=== PATIENT | female | born 1945 | race Caucasian/White ===

== ENCOUNTER 2022-06-03 17:45 | Inpatient (IN) | payer BC ==
[~2022-06-03] VITALS: Ht 152.4 cm; Wt 77.6 kg
--- NOTE | 2022-06-03 18:10 | NUR ---
PT BIBRA FROM HOME C/O R ANTECUBITAL AREA PAIN SWELLING AND REDNESS SINCE YESTERDAY. PT STATES HAD BLOOD TRANSFUSION DONE 3 DAYS AGO. 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 AWAITING MD GARCÍA.
--- NOTE | 2022-06-03 18:51 | NUR ---
DR AGUIRRE AT BEDSIDE FOR EVAL.
[2022-06-03] MEDS ORDERED: HYDROCODONE/APAP 5/325MG TABLET ONE ×2 (18:59→22:05)
[2022-06-03] MEDS ORDERED: IV NS 0.9% 1,000 ML BAG IV ONE (19:00)
[2022-06-03] MEDS ORDERED: LEVOFLOXACIN 750 MG /D5W 150ML 150 ML IV ONE ×2 (19:00→19:18)
[2022-06-03] MEDS ORDERED: VANCOMYCIN 1 GM in IV D5W 250 ML IV ONE (19:00)
[2022-06-03] MEDS ORDERED: HYDROCODONE/APAP 5/325MG TABLET PO ONE ×2 (19:00→22:30)
--- NOTE | 2022-06-03 19:22 | NUR ---
REPORT GIVEN TO SUNSHINE KONG FOR LING.
--- NOTE | 2022-06-03 19:24 | NUR ---
MOVE SHEET SUBMITTED.
--- NOTE | 2022-06-03 19:31 | NUR ---
RICARDO SENT TO LAB
--- NOTE | 2022-06-03 19:40 | NUR ---
DTR DIVINE [phone]
[2022-06-03 20:25] LABS: ALANINE AMINOTRANSFERASE 65 U/L (12-78); ALBUMIN 2.9 g/dL (3.4-5.0); ALKALINE PHOSPHATASE 188 U/L (46-116); ASPARTATE AMINOTRANSFERASE 68 U/L (15-37); BILIRUBIN,DIRECT 0.2 mg/dL (0.0-0.2); BILIRUBIN,TOTAL 0.9 mg/dL (0.2-1.0); CALCIUM, SERUM 7.9 mg/dL (8.5-10.1); CARBON DIOXIDE 26 mmol/L (21-32); CHLORIDE 102 mmol/L (98-107); CREATININE 1.8 mg/dL (0.6-1.3); GLUCOSE 131 mg/dL (74-106); POTASSIUM 3.5 mmol/L (3.5-5.1); SODIUM SERUM 135 mmol/L (136-145); TOTAL PROTEIN, SERUM 7.5 g/dL (6.4-8.2); UREA NITROGEN, BLOOD 26 mg/dL (7-18)
[2022-06-03 20:29] LABS: BASOPHILS % (AUTO) 0.3 % (0.0-2.0); EOSINOPHILS % (AUTO) 2.1 % (0.0-6.0); HEMATOCRIT 31 % (33-45); HEMOGLOBIN 10.4 g/dL (11.5-14.8); LYMPHOCYTES # (AUTO) 1.9 K/uL (0.8-4.8); LYMPHOCYTES % (AUTO) 21.9 % (20.0-44.0); MEAN CORPUSCULAR HGB CONC 33 g/dl (31.0-36.0); MEAN CORPUSCULAR VOLUME 83 fL (82-100); MONOCYTES # (AUTO) 0.9 K/uL (0.1-1.30); MONOCYTES % (AUTO) 9.7 % (2.0-12.0); NEUTROPHILS # (AUTO) 5.8 K/uL (1.8-8.9); PLATELET COUNT (AUTO) 182 K/uL (150-450); RED BLOOD CELL COUNT(AUTO) 3.79 MIL/uL (4.0-5.2); WHITE BLOOD COUNT (AUTO) 8.8 K/uL (4.3-11.0)
[2022-06-03] MEDS ORDERED: VANCOMYCIN 1 GM VIAL ONE (20:34)
--- NOTE | 2022-06-03 21:09 | NUR ---
[phone] - LUZ MARINA (DAUGHTER)
--- NOTE | 2022-06-03 22:02 | NUR ---
RECIEVED AUTH FROM PADMINI ERAZO AUTH #[id number]
--- NOTE | 2022-06-03 23:09 | NUR ---
Saundra bautista in [facility] - 06/03/22 at 2310 by MARICRUZ [facility] [phone]
--- NOTE | 2022-06-03 23:10 | NUR ---
roomk 306-2 ms
[2022-06-04] MEDS ORDERED: MORPHINE SULFATE INJ 4 MG/ML DISP.SYRIN ONE (00:43)
[2022-06-04] MEDS ORDERED: MORPHINE SULFATE INJ 2 MG/ML DISP.SYRIN IV ONE (01:30)
[2022-06-04] MEDS ORDERED: Z GUARD REMEDY 4 OZ OINT TP PRN (02:00)
[2022-06-04] MEDS ORDERED: ONDANSETRON HCL/PF 4 MG/2 ML VIAL IVP PRN (02:00)
[2022-06-04] MEDS ORDERED: ZOLPIDEM TARTRATE 5 MG TABLET PO PRN (02:00)
[2022-06-04] MEDS ORDERED: MAGNESIUM HYDROXIDE 30 ML UDC PO PRN (02:00)
[2022-06-04] MEDS ORDERED: ACETAMINOPHEN 325 MG TABLET PO PRN (02:00)
[2022-06-04] MEDS ORDERED: MAG HYDROX/AL HYDROX/SIMETH 30 ML UDC PO PRN (02:00)
--- NOTE | 2022-06-04 02:58 | NUR ---
REPORT GIVEN TO NEY
--- NOTE | 2022-06-04 03:19 | NUR ---
PT TAKEN TO 3W 306-1 VIA HOSPITAL PROTOCOL
[2022-06-04 03:30] VITALS: BP 143/77
--- NOTE | 2022-06-04 03:30 | NUR ---
RN ADMITTING NOTE RECEIVED PATIENT FROM ER VIA GURNEY ACCOMPANIED BY 2 ER STAFF, AMBULATED TO BED. PATIENT AO X 4, IN NO ACUTE DISTRESS, SATURATION AT 98% ON ROOM AIR, HR IS 83. IV LINE AT LFA 20G PATENT AND FLUSHING WELL, NO S/S OF INFECTION OR INFILTRATION, STARTED IV FLUID OF NS AT 75 ML/HR PER MD ORDERS. COMPREHENSIVE ASSESSMENT PERFORMED, SKIN CHECK DONE WITH LADI KONG, NOTED REDNESS AND SWELLING AT R UPPER ARM, TENDER TO TOUCH ACCOMPANIED BY PAIN AT 7-8/10 PER PATIENT. SAFETY MEASURES IN PLACE, BED IS LOCKED AND LOWEST POSITION, HOB ELEVATED, CALL LIGHT WITHIN REACH OF PATIENT. WILL CONT TO MONITOR AND CARRY OUT MD ORDERS. Addendum: 06/04/22 at 0553 by NEY NAVARRO RN PER SUNSHINE KONG, MRSA SWAB WAS DONE.
[2022-06-04] MEDS: IV NS 0.9% 1,000 ML IV PRN ×2 (03:32→19:05)
[2022-06-04] MEDS: HYDROCODONE/APAP 5/325MG TABLET PO PRN ×3 (03:43→17:14)
[2022-06-04 06:46] LABS: CALCIUM, SERUM 7.5 mg/dL (8.5-10.1); CARBON DIOXIDE 24 mmol/L (21-32); CHLORIDE 104 mmol/L (98-107); CREATININE 1.5 mg/dL (0.6-1.3); GLUCOSE 106 mg/dL (74-106); MAGNESIUM 2.1 mg/dL (1.8-2.4); POTASSIUM 3.9 mmol/L (3.5-5.1); SODIUM SERUM 135 mmol/L (136-145); UREA NITROGEN, BLOOD 32 mg/dL (7-18)
[2022-06-04 06:56] LABS: BASOPHILS % (AUTO) 0.2 % (0.0-2.0); CHOLESTEROL 114 mg/dL (<200); HDL CHOLESTEROL 56 mg/dL (40-60); HEMATOCRIT 28 % (33-45); HEMOGLOBIN 9.3 g/dL (11.5-14.8); IRON, SERUM 29 ug/dl (50-175); LDL 50 mg/dL (0-99); LYMPHOCYTES # (AUTO) 0.9 K/uL (0.8-4.8); LYMPHOCYTES % (AUTO) 11.1 % (20.0-44.0); MEAN CORPUSCULAR HGB CONC 33 g/dl (31.0-36.0); MEAN CORPUSCULAR VOLUME 83 fL (82-100); MONOCYTES # (AUTO) 0.7 K/uL (0.1-1.30); MONOCYTES % (AUTO) 9.2 % (2.0-12.0); NEUTROPHILS % (AUTO) 76.5 % (43.0-81.0); PLATELET COUNT (AUTO) 153 K/uL (150-450); TOTAL IRON BINDING CAPACITY 283 ug/dl (250-450); TRIGLYCERIDES 74 mg/dL (30-150); WHITE BLOOD COUNT (AUTO) 7.9 K/uL (4.3-11.0)
[2022-06-04 08:00] VITALS: BP_SYST 126; BP_SYST 127; BP_DIAS 68; BP_DIAS 82
[2022-06-04] MEDS ORDERED: LEVOFLOXACIN 750 MG /D5W 150ML 750 MG in PREMIX 1 EA IV SCH (08:00)
[2022-06-04] MEDS ORDERED: GABA-532 PO (08:11)
[2022-06-04] MEDS ORDERED: MIRT-90 PO (08:11)
[2022-06-04] MEDS ORDERED: ATOR40TA PO (08:11)
[2022-06-04] MEDS ORDERED: CARV3.122 PO (08:11)
[2022-06-04] MEDS ORDERED: OMEP40CA21 PO (08:11)
[2022-06-04] MEDS ORDERED: MEMA5TAB42 PO (08:11)
--- NOTE | 2022-06-04 13:34 | NUR ---
RN NOTES COVERING FOR LUNCH BREAK HUGH JONES THE RN NURSE. PATIENT COMPLAINING OF THE RIGHT ARM PAIN LEVEL OF 7/10. PRN NORCO 5/325 MG GIVEN FOR PAIN AT 1327. WILL ASSESS IN 30 MIN.
[2022-06-04] MEDS ORDERED: SALINE NASAL SPRAY 0.65% 1 BOTTLE BOTTLE NS PRN (14:00)
[2022-06-04 16:00] VITALS: BP 143/84
--- NOTE | 2022-06-04 19:00 | NUR ---
RN CLOSING NOTE PATIENT A/OX4 SLEEPING IN BED. NORCO PAIN MEDICATION GIVEN TO PATIENT AT 1700 SREEDHAR TO PAIN IN HER RIGHT UPPER ARM. NO S/S OF DISTRESS, BREATHING WITHOUT DIFFICULTY ON ROOM AIR. LFA #20 INTACT AND PATENT W/ NS 75ML/HR. SAFETY MEASURES IN PLACE: BED LOCKED AND AT LOWEST POSITION, RAILS UP X2, CALL SPICER WITHIN REACH. WILL ENDORSE THE PATIENT TO THE GASTROENTEROLOGY PHYSICIAN NURSE.
--- NOTE | 2022-06-04 19:55 | NUR ---
RN OPENING NOTE PATIENT AWAKE IN BED, WATCHING TV. A/OX4. NO S/S OF DISTRESS, BREATHING WITHOUT DIFFICULTY ON ROOM AIR. LFA #20 INTACT AND PATENT W/ NS 75ML/HR. SAFETY MEASURES IN PLACE: BED LOCKED AND AT LOWEST POSITION, RAILS UP X2, CALL SPICER WITHIN REACH. WILL CONTINUE TO MONITOR PATIENT.
[2022-06-04 20:00] VITALS: BP 88/66
--- NOTE | 2022-06-04 20:32 | NUR ---
RN NOTE PATIENT COMPLAINING OF BREAKTHROUGH PAIN. ON-CALL DAISY FERGUSON, CONTACTED. AWAITING ORDERS. PATIENT O/W STABLE; WILL CONTINUE TO MONITOR.
--- NOTE | 2022-06-04 20:33 | NUR ---
RN NOTE DAISY GAVE ORDERS FOR - NORCO 10/325 PO Q4HR PRN PAIN - MORPHINE 2MG IV Q4HR PRN PAIN
[2022-06-04] MEDS ORDERED: MORPHINE SULFATE INJ 2 MG/ML DISP.SYRIN IV PRN (21:00)
[2022-06-04] MEDS ORDERED: VANCOMYCIN HCL 0.75 GM in IV D5W 250 ML IV SCH (21:00)
[2022-06-05] MEDS: HYDROCODONE/APAP 10/325MG TABLET PO PRN ×2 (05:50→11:50)
--- NOTE | 2022-06-05 06:29 | NUR ---
RN CLOSING NOTE PATIENT AWAKE IN BED. A/OX4. NO S/S OF DISTRESS, BREATHING WITHOUT DIFFICULTY ON ROOM AIR. LFA #20 IV SITE INFILTRATED. AN ORDER FOR MIDLINE IS DUE WHEN MIDLINE NURSE ARRIVES FOR THE DAY. SAFETY MEASURES IN PLACE: BED LOCKED AND AT LOWEST POSITION, RAILS UP X2, CALL SPICER WITHIN REACH. WILL ENDORSE TO NEXT SHIFT FOR LING.
--- NOTE | 2022-06-05 07:35 | NUR ---
MS RN OPENING NOTE RECEIVED PATIENT AWAKE IN BED, A/OX4. ON RA, NO SOB NOTED, NO S/S OF ANY DISTRESS . NO IV ACCESS, FOR MIDLIN INSERTION TODAY. SAFETY MEASURES IN PLACE: BED LOCKED AND AT LOWEST POSITION, RAILS UP X2, CALL SPICER AND TRAY TABLE WITHIN REACH. WILL CONTINUE TO MONITOR PATIENT.
[2022-06-05 07:59] VITALS: BP 137/64
--- NOTE | 2022-06-05 08:30 | NUR ---
RN NOTES - DR RICE AT BEDSIDE, WILL DC PATIENT TODAY, NO NEED FOR MIDLINE. INFORMED CARGO BRACER TO CANCEL.
[2022-06-05] MEDS ORDERED: SULF1TAB48 PO (09:20)
--- NOTE | 2022-06-05 13:12 | NUR ---
DISCHARGE NOTES PT DISCHARGED TO HOME IN STABLE CONDITION. PT AOX4, ABLE TO MAKE NEEDS KNOWN, ON ROOM AIR SATURATING WELL WITH SPO2 98%. NO SOB NOTED NOT IN ANY SIGN OF RESPIRATORY DISTRESS. VITAL SIGNS TAKEN, STABLE, AND RECORDED. PT'S SKIN IS INTACT BUT STILL NOTED WITH ANALILIA REDNESS, ASKED TO TAKE PICTURES, PATIENT DECLINED, DENIES DISCOMFORT OR PAIN AT THIS TIME. BELONGINGS ACCOUNTED FOR AND SIGNED. NO IV LINE. DISCHARGE INSTRUCTIONS GIVEN TO PATIENT. PATIENT LEFT AT THE UNIT WITH DIVINE, DAUGHTER, AT 1218 AND ACCOMPANIED TO THE LOBBY SAFELY. MD AND CHARGE NURSE AWARE.
== END 2022-06-05 12:20 | disposition home or self-care (01) | DRG 602 ==
LOC: ER 17:54 → MED 06-04 02:56
PROVIDERS: ADMIT Internal Medicine; ATTEND Internal Medicine
DX: L03.113 Cellulitis of right upper limb (principal); N17.0 Acute kidney failure with tubular necrosis; F03.90 Unspecified dementia, unspecified severity, without behavioral disturbance, psychotic disturbance, mood disturbance, and anxiety; I10 Essential (primary) hypertension; E78.5 Hyperlipidemia, unspecified; J44.9 Chronic obstructive pulmonary disease, unspecified; D50.9 Iron deficiency anemia, unspecified; E88.09 Other disorders of plasma-protein metabolism, not elsewhere classified; E66.9 Obesity, unspecified; Z68.33 Body mass index [BMI] 33.0-33.9, adult; Z20.822 Contact with and (suspected) exposure to COVID-19; F17.210 Nicotine dependence, cigarettes, uncomplicated
CPT/HCPCS: 36415; 71045-TC; 76770-TC; 80048-TC; 80061-TC; 80076-TC; 83540-TC; 83605-TC; 83735-TC; 84484-TC; 85025-TC; 85730-TC; 86140-TC; 87040-TC; 87081-TC; 93971-TC; 97116-TC; 97530-TC; A4216; C9803; G0378; J1956; J2270; J3370; J7030; J7060